=== PATIENT | female | born 1965 | race Caucasian/White ===

== ENCOUNTER 2017-07-01 00:17 | Day surgery (SDC) | payer MEDICARE, OTHER ==
[~2017-07-01 00:17] MED LIST: ABAC300; ACET325; ACET325 PO; ALBU90OI INH; AMOCLA500 PO; AMOCLA875 PO; ASCORBIC ACID PO; ASPI81CH PO; ATOR20 PO; ATOR40TA PO; Ambien5 MG PO; Aspir 8181 MG PO; BACTRIM PO; BUPR150ER PO; Bactrim Ds Tab1 EACH PO; CALCAVITDA PO; CEFD300 PO; CEPH500 PO; CILO50 PO; CIPR500 PO; CLIN150 PO; CLIN300 PO; CLOP75 PO; CYAN1000I IM; Cilostazol50 MG PO; Cleocin HCl150 MG PO; DIPH50 PO; DOCU100 PO; DOXY100; ESTNOR PO; FERR325 PO; FOLI1 PO; GAVILAX17 GM; HYDACE10B PO; HYDACE5 PO; HYDACE5325 PO; IBUP600 PO; KETO10 PO; LEVFLO500 PO; LIDO5TP TOP; LINE600 PO; LISHYD1012 PO; LISHYD2025 PO; LISI20 PO; LORA1 PO; LOVA20 PO; METF500 PO; METO25 PO; METR500 PO; MONDOXYNE NL100 MG PO; MORP30 PO; MORP30ER PO; MORP60ER PO; MORPHINE SULFAT30 M1 PO; MULVITMIND PO; NAPR500 PO; Norco 10-325 T1 EACH PO; ONDA4 PO; OXYACE5T PO; OXYC5 PO; Oxycodone HCl20 M1 PO; POTASSIUM GLUC500 MG PO; POTCHL20ER PO; POTCIT5 PO; Percocet 10-321 EACH PO; SENN187; SILSUL1TC TOP; SULTRIDS PO; SULTRISS; Silvadene20 GM TOP; Sulfamethoxazo1 EAC4 PO; TRAM50 PO; TRAZ150T57 PO; Tazicef1 G1 IV; VANCO 1.251.25 GM/25; VARE1 PO; Vancocin 11000 MG/20 INJ; ZOHYDRO ER10 M1 PO
[2018-01-14] MEDS ORDERED: Prinivil10 MG PO (06:57)
[2018-01-14] MEDS ORDERED: HYDCHL12.5 PO (06:59)
[2018-01-14] MEDS ORDERED: HYDR1TAB94 PO (07:00)
[2018-01-14] MEDS ORDERED: TRAZ50 PO (07:01)
[2018-01-14] MEDS ORDERED: CLOP75 PO (11:41)
== END 2017-07-01 22:47 | disposition home or self-care (01) ==
LOC: WOUND 00:17
DX: Z48.00 Encounter for change or removal of nonsurgical wound dressing (principal); T81.31XD Disruption of external operation (surgical) wound, not elsewhere classified, subsequent encounter; F17.210 Nicotine dependence, cigarettes, uncomplicated; I70.203 Unspecified atherosclerosis of native arteries of extremities, bilateral legs
CPT/HCPCS: G0463

== ENCOUNTER 2017-07-15 08:00 | Day surgery (SDC) | payer MEDICARE, OTHER ==
[2018-01-14] MEDS ORDERED: Prinivil10 MG PO (06:57)
[2018-01-14] MEDS ORDERED: HYDCHL12.5 PO (06:59)
[2018-01-14] MEDS ORDERED: HYDR1TAB94 PO (07:00)
[2018-01-14] MEDS ORDERED: TRAZ50 PO (07:01)
[2018-01-14] MEDS ORDERED: CLOP75 PO (11:41)
== END 2017-07-15 10:53 | disposition home or self-care (01) ==
LOC: WOUND 08:00
DX: Z48.00 Encounter for change or removal of nonsurgical wound dressing (principal); T81.31XD Disruption of external operation (surgical) wound, not elsewhere classified, subsequent encounter; F17.210 Nicotine dependence, cigarettes, uncomplicated; I70.203 Unspecified atherosclerosis of native arteries of extremities, bilateral legs; Z89.511 Acquired absence of right leg below knee
CPT/HCPCS: G0463

== ENCOUNTER 2017-08-05 00:49 | Day surgery (SDC) | payer MEDICARE, OTHER ==
[2018-01-14] MEDS ORDERED: Prinivil10 MG PO (06:57)
[2018-01-14] MEDS ORDERED: HYDCHL12.5 PO (06:59)
[2018-01-14] MEDS ORDERED: HYDR1TAB94 PO (07:00)
[2018-01-14] MEDS ORDERED: TRAZ50 PO (07:01)
[2018-01-14] MEDS ORDERED: CLOP75 PO (11:41)
== END 2017-08-05 08:32 | disposition home or self-care (01) ==
LOC: WOUND 00:49
DX: Z48.00 Encounter for change or removal of nonsurgical wound dressing (principal); T81.31XD Disruption of external operation (surgical) wound, not elsewhere classified, subsequent encounter; F17.210 Nicotine dependence, cigarettes, uncomplicated; I70.203 Unspecified atherosclerosis of native arteries of extremities, bilateral legs; Z89.511 Acquired absence of right leg below knee
CPT/HCPCS: G0463

== ENCOUNTER → 2017-12-14 | Outpatient (CLI) | payer MEDICARE, OTHER | LOC: LAB SHORT 15:31 → LAB 15:31 | DX: L08.9 Local infection of the skin and subcutaneous tissue, unspecified (principal) | CPT/HCPCS: 87070; 87075; 87147; 87205 ==

== ENCOUNTER 2017-12-16 13:05 | Inpatient (IN) | payer MEDICARE, OTHER ==
[~2017-12-16] VITALS: Ht 160 cm; Wt 73.5 kg
[2017-12-16 14:32] LABS: BASOPHILS ABSOLUTE AUTO 0.06 K/mm3 (0.00-0.23); BASOPHILS PERCENT AUTO 1 % (0-2); EOSINOPHILS ABSOLUTE AUTO 0.13 K/mm3 (0.00-0.68); EOSINOPHILS PERCENT AUTO 2 % (0-6); Hematocrit 36.7 % (33.0-51.0); Hemoglobin 12.6 g/dL (11.5-16.0); IMMATURE GRAN ABSOLUTE AUTO 0.07 K/mm3 (0.00-0.10); IMMATURE GRAN PERCENT AUTO 1 % (0-1); LYMPHOCYTES ABSOLUTE AUTO 2.16 K/mm3 (0.84-5.20); LYMPHOCYTES PERCENT AUTO 25 % (21-46); MONOCYTES ABSOLUTE AUTO 0.49 K/mm3 (0.16-1.47); MONOCYTES PERCENT AUTO 6 % (4-13); Mean Corpuscular HGB 33.3 pg (26.0-34.0); Mean Corpuscular HGB Conc 34.3 g/dL (31.5-36.5); Mean Corpuscular Volume 97 fL (80-100); Mean Platelet Volume 10.7 fL (9.1-12.4); NEUTROPHILS ABSOLUTE AUTO 5.62 K/mm3 (1.96-9.15); NEUTROPHILS PERCENT AUTO 66 % (41-73); Platelet Count 281 K/mm3 (150-400); RDW Coefficient Variation 13.6 % (11.7-14.2); Red Blood Cell Count 3.78 M/mm3 (3.80-5.20); White Blood Cell Count 8.53 K/mm3 (4.00-11.30)
[2017-12-16 14:53] LABS: Alanine Aminotransfer (ALT/SGP 54 U/L (12-78); Albumin, Blood 3.2 g/dL (3.4-5.0); Albumin/Globulin Ratio 0.7 (0.8-1.8); Alk Phos 102 U/L (50-136); Anion Gap 10 mmol/L (6-16); Aspartate Aminotrans (AST/SGOT 52 U/L (12-37); Bilirubin, Total 0.5 mg/dL (0.1-1.0); Blood Urea Nitrogen 20 mg/dL (8-24); Bun/Creatinine Ratio 30.8 (12.0-20.0); CO2, Blood 27 mmol/L (21-32); Calcium, Blood 8.8 mg/dL (8.5-10.1); Chloride, Blood 95 mmol/L (98-108); Creatinine, Blood 0.65 mg/dL (0.40-1.00); Globulin, Blood 4.6 g/dL (2.2-4.0); Glomerular Filtration Rate >60 (60-); Glucose, Blood 100 mg/dL (70-99); Potassium, Blood 3.9 mmol/L (3.5-5.5); Sodium, Blood 132 mmol/L (136-145); Total Protein, Blood 7.8 g/dL (6.4-8.2)
[2017-12-17 02:17] LABS: Anion Gap 7 mmol/L (6-16); BASOPHILS ABSOLUTE AUTO 0.03 K/mm3 (0.00-0.23); BASOPHILS PERCENT AUTO 0 % (0-2); Blood Urea Nitrogen 21 mg/dL (8-24); Bun/Creatinine Ratio 31.8 (12.0-20.0); CO2, Blood 28 mmol/L (21-32); Calcium, Blood 8.9 mg/dL (8.5-10.1); Chloride, Blood 99 mmol/L (98-108); Creatinine, Blood 0.66 mg/dL (0.40-1.00); EOSINOPHILS PERCENT AUTO 1 % (0-6); Glomerular Filtration Rate >60 (60-); Glucose, Blood 118 mg/dL (70-99); Hematocrit 37.9 % (33.0-51.0); Hemoglobin 12.7 g/dL (11.5-16.0); IMMATURE GRAN ABSOLUTE AUTO 0.04 K/mm3 (0.00-0.10); IMMATURE GRAN PERCENT AUTO 0 % (0-1); LYMPHOCYTES ABSOLUTE AUTO 0.95 K/mm3 (0.84-5.20); LYMPHOCYTES PERCENT AUTO 10 % (21-46); MONOCYTES ABSOLUTE AUTO 0.42 K/mm3 (0.16-1.47); MONOCYTES PERCENT AUTO 5 % (4-13); Mean Corpuscular HGB 33.4 pg (26.0-34.0); Mean Corpuscular HGB Conc 33.5 g/dL (31.5-36.5); Mean Platelet Volume 10.9 fL (9.1-12.4); NEUTROPHILS ABSOLUTE AUTO 7.86 K/mm3 (1.96-9.15); NEUTROPHILS PERCENT AUTO 84 % (41-73); Platelet Count 273 K/mm3 (150-400); Potassium, Blood 4.1 mmol/L (3.5-5.5); RDW Coefficient Variation 13.6 % (11.7-14.2); RDW Standard Deviation 49.8 fL (35.1-46.3); Sodium, Blood 134 mmol/L (136-145)
[2017-12-17 02:18] LABS: Mean Corpuscular Volume 100 fL (80-100)
[2017-12-18 05:03] LABS: BASOPHILS ABSOLUTE AUTO 0.04 K/mm3 (0.00-0.23); BASOPHILS PERCENT AUTO 1 % (0-2); EOSINOPHILS ABSOLUTE AUTO 0.14 K/mm3 (0.00-0.68); EOSINOPHILS PERCENT AUTO 2 % (0-6); Hematocrit 33.9 % (33.0-51.0); Hemoglobin 11.5 g/dL (11.5-16.0); IMMATURE GRAN ABSOLUTE AUTO 0.06 K/mm3 (0.00-0.10); IMMATURE GRAN PERCENT AUTO 1 % (0-1); LYMPHOCYTES ABSOLUTE AUTO 2.23 K/mm3 (0.84-5.20); LYMPHOCYTES PERCENT AUTO 29 % (21-46); MONOCYTES ABSOLUTE AUTO 0.48 K/mm3 (0.16-1.47); MONOCYTES PERCENT AUTO 6 % (4-13); Mean Corpuscular HGB 33.3 pg (26.0-34.0); Mean Corpuscular HGB Conc 33.9 g/dL (31.5-36.5); Mean Corpuscular Volume 98 fL (80-100); Mean Platelet Volume 11.1 fL (9.1-12.4); NEUTROPHILS ABSOLUTE AUTO 4.76 K/mm3 (1.96-9.15); NEUTROPHILS PERCENT AUTO 62 % (41-73); Platelet Count 262 K/mm3 (150-400); RDW Coefficient Variation 13.6 % (11.7-14.2); RDW Standard Deviation 48.6 fL (35.1-46.3); Red Blood Cell Count 3.45 M/mm3 (3.80-5.20); White Blood Cell Count 7.71 K/mm3 (4.00-11.30)
[2017-12-18 05:36] LABS: Albumin, Blood 2.7 g/dL (3.4-5.0); Anion Gap 8 mmol/L (6-16); Blood Urea Nitrogen 12 mg/dL (8-24); Bun/Creatinine Ratio 20.4 (12.0-20.0); CO2, Blood 29 mmol/L (21-32); Calcium, Blood 9.1 mg/dL (8.5-10.1); Chloride, Blood 102 mmol/L (98-108); Creatinine, Blood 0.59 mg/dL (0.40-1.00); Glomerular Filtration Rate >60 (60-); Glucose, Blood 130 mg/dL (70-99); Phosphorus, Blood 3.6 mg/dL (2.5-4.9); Potassium, Blood 3.6 mmol/L (3.5-5.5); Sodium, Blood 139 mmol/L (136-145)
[2017-12-19 04:56] LABS: BASOPHILS ABSOLUTE AUTO 0.05 K/mm3 (0.00-0.23); BASOPHILS PERCENT AUTO 0 % (0-2); EOSINOPHILS ABSOLUTE AUTO 0.06 K/mm3 (0.00-0.68); EOSINOPHILS PERCENT AUTO 1 % (0-6); Hematocrit 32.4 % (33.0-51.0); Hemoglobin 10.9 g/dL (11.5-16.0); IMMATURE GRAN ABSOLUTE AUTO 0.13 K/mm3 (0.00-0.10); IMMATURE GRAN PERCENT AUTO 1 % (0-1); LYMPHOCYTES ABSOLUTE AUTO 2.47 K/mm3 (0.84-5.20); LYMPHOCYTES PERCENT AUTO 22 % (21-46); MONOCYTES ABSOLUTE AUTO 0.55 K/mm3 (0.16-1.47); MONOCYTES PERCENT AUTO 5 % (4-13); Mean Corpuscular HGB 33.5 pg (26.0-34.0); Mean Corpuscular HGB Conc 33.6 g/dL (31.5-36.5); Mean Corpuscular Volume 100 fL (80-100); Mean Platelet Volume 10.7 fL (9.1-12.4); NEUTROPHILS ABSOLUTE AUTO 7.91 K/mm3 (1.96-9.15); NEUTROPHILS PERCENT AUTO 71 % (41-73); Platelet Count 290 K/mm3 (150-400); RDW Coefficient Variation 13.7 % (11.7-14.2); RDW Standard Deviation 49.8 fL (35.1-46.3); Red Blood Cell Count 3.25 M/mm3 (3.80-5.20); White Blood Cell Count 11.17 K/mm3 (4.00-11.30)
[2017-12-19 05:19] LABS: Albumin, Blood 2.8 g/dL (3.4-5.0); Anion Gap 8 mmol/L (6-16); Blood Urea Nitrogen 12 mg/dL (8-24); Bun/Creatinine Ratio 19.8 (12.0-20.0); CHOL/HDL RATIO 3.8; CO2, Blood 26 mmol/L (21-32); Calcium, Blood 8.7 mg/dL (8.5-10.1); Chloride, Blood 104 mmol/L (98-108); Cholesterol 138 mg/dL (50-200); Creatinine, Blood 0.61 mg/dL (0.40-1.00); Glomerular Filtration Rate >60 (60-); Glucose, Blood 213 mg/dL (70-99); HDL Cholesterol 36 mg/dL (>39); LDL/HDL RATIO 1.2; Low Density Lipoprotein Chol 45 mg/dL (0-110); Phosphorus, Blood 3.3 mg/dL (2.5-4.9); Potassium, Blood 4.1 mmol/L (3.5-5.5); Sodium, Blood 138 mmol/L (136-145); Triglycerides 286 mg/dL (30-160); Very Low Density Lipoprot Chol 57 mg/dL (6-32)
[2017-12-21] MEDS ORDERED: CEPH500 PO (08:42)
[2017-12-21] MEDS ORDERED: HYDMOR2 PO (08:43)
[2017-12-21] MEDS ORDERED: NICO21TP TOP (08:44)
[2017-12-21] MEDS ORDERED: METO25 PO (08:44)
[2017-12-21] MEDS ORDERED: SACC250C PO (08:45)
== END 2017-12-21 10:19 | disposition home or self-care (01) | DRG 617 ==
LOC: ER 13:05 → MEDS 15:55 → ENPENDDIS 12-21 08:32 → MEDS 12-21 10:19
PROVIDERS: Emergency Medicine; Family Medicine; Podiatrist Foot & Ankle Surgery
PROC: 0JBR0ZZ Excision of Left Foot Subcutaneous Tissue and Fascia, Open Approach (ICD-10-PCS; 2017-12-18)
PROC: 0Y6S0Z0 Detachment at Left 2nd Toe, Complete, Open Approach (ICD-10-PCS; principal; 2017-12-18 12:30)
DX: E11.621 Type 2 diabetes mellitus with foot ulcer (principal); R65.10 Systemic inflammatory response syndrome (SIRS) of non-infectious origin without acute organ dysfunction; L03.116 Cellulitis of left lower limb; E87.1 Hypo-osmolality and hyponatremia; L97.529 Non-pressure chronic ulcer of other part of left foot with unspecified severity; L08.9 Local infection of the skin and subcutaneous tissue, unspecified; E78.5 Hyperlipidemia, unspecified; I73.9 Peripheral vascular disease, unspecified; I10 Essential (primary) hypertension; Z89.511 Acquired absence of right leg below knee; F17.210 Nicotine dependence, cigarettes, uncomplicated; J44.9 Chronic obstructive pulmonary disease, unspecified; M54.9 Dorsalgia, unspecified; Z66 Do not resuscitate; B95.4 Other streptococcus as the cause of diseases classified elsewhere
CPT/HCPCS: 36415; 73630; 80048; 80053; 80061; 80069; 82947; 83605; 85025; 85651; 85730; 86140; 87040; 87070; 87071; 87075; 87147; 87205; 88305; 88311; 93005; 93010; 93926; 96365; 96367; 96375; 99285; J1100; J1644; J2001; J2250; J2405; J2543; J3010; J3370; J7030; J7040; J7120

== ENCOUNTER 2018-02-10 08:27 | Day surgery (SDC) | payer MEDICARE, OTHER ==
[~2018-02-10] VITALS: Ht 160 cm; Wt 69.0 kg
[~2018-02-10 08:27] MED LIST changes: +HYDCHL12.5 PO; +HYDMOR2 PO; +HYDR1TAB94 PO; +NICO21TP TOP; +Prinivil10 MG PO; +SACC250C PO; +TRAZ50 PO
[2018-02-10] MEDS ORDERED: METO25ER PO (09:09)
== END 2018-02-10 12:05 | disposition home or self-care (01) ==
LOC: ORSCSDS 08:27
PROVIDERS: Student in an Organized Health Care Education/Training Program
PROC: 0Y6N0ZC Detachment at Left Foot, Partial 3rd Ray, Open Approach (ICD-10-PCS; principal; 2018-02-10 09:30)
PROC: 0Y6N0ZB Detachment at Left Foot, Partial 2nd Ray, Open Approach (ICD-10-PCS; principal; 2018-02-10 09:30)
PROC: 0Y6N0ZD Detachment at Left Foot, Partial 4th Ray, Open Approach (ICD-10-PCS; principal; 2018-02-10 09:30)
PROC: 0Y6N0Z9 Detachment at Left Foot, Partial 1st Ray, Open Approach (ICD-10-PCS; principal; 2018-02-10 09:30)
DX: M86.172 Other acute osteomyelitis, left ankle and foot (principal); E11.42 Type 2 diabetes mellitus with diabetic polyneuropathy; E11.621 Type 2 diabetes mellitus with foot ulcer; Z87.898 Personal history of other specified conditions; E78.5 Hyperlipidemia, unspecified; I10 Essential (primary) hypertension; Z79.899 Other long term (current) drug therapy; Z79.82 Long term (current) use of aspirin; F17.210 Nicotine dependence, cigarettes, uncomplicated
CPT/HCPCS: 87070; 87075; 87205; J0690; J1100; J2250; J2370; J2405; J3010; J7120

== ENCOUNTER 2018-09-02 15:03 | Emergency (ER) | payer MEDICARE, OTHER ==
[~2018-09-02 15:03] MED LIST changes: +METO25ER PO
== END 2018-09-02 15:30 | disposition left against medical advice (07) ==
LOC: ER 15:03
DX: Z53.21 Procedure and treatment not carried out due to patient leaving prior to being seen by health care provider (principal)

== ENCOUNTER 2018-09-05 10:58 | Emergency (ER) | payer MEDICARE, OTHER ==
[~2018-09-05] VITALS: Ht 160 cm; Wt 66.7 kg
[2018-09-05] MEDS ORDERED: LEVE500 PO (11:46)
[2018-09-05] MEDS ORDERED: DULO30 PO (11:47)
[2018-09-05] MEDS ORDERED: ATOR20 PO (11:47)
[2018-09-05] MEDS ORDERED: ZESTORETIC 20-121 EA PO (11:47)
[2018-09-05] MEDS ORDERED: CILO100 PO (11:48)
[2018-09-05] MEDS ORDERED: TRAZ50 PO (11:48)
[2018-09-05] MEDS ORDERED: LIDO700A20 TOP (12:12)
== END 2018-09-05 12:15 | disposition home or self-care (01) ==
LOC: ER 10:58
DX: S20.211A Contusion of right front wall of thorax, initial encounter (principal); M25.551 Pain in right hip; W18.09XA Striking against other object with subsequent fall, initial encounter; Z88.5 Allergy status to narcotic agent; Z79.899 Other long term (current) drug therapy; I10 Essential (primary) hypertension; F17.210 Nicotine dependence, cigarettes, uncomplicated
CPT/HCPCS: 73502; 99283-25